=== PATIENT | female | born 1950 | race Caucasian/White ===

== ENCOUNTER 2016-12-11 13:51 | Emergency (ER) | payer OTHER ==
[~2016-12-11] VITALS: Ht 161.3 cm; Wt 73.5 kg
--- NOTE | ~2016-12-11 | CT2 ---
[facility] A Service of [facility] & [facility] RADIOLOGY TEXT RESULTS PATIENT: NAYELI LOMELI LOCATION: [facility] : 52 UNIT #: [id number] AGE: [address]: Tommy Nino MD SEX: F ORDER DR: [id number] [facility] [address] [place], [place] [address] [id number] MR#: [id number] Acc #: [id number] NAME: NAYELI LOMELI. : 1950 SEX: F STUDY DATE/TIME: 12/11/2016 16:09 UNIT: [facility] ROOM: STUDY DESCRIPTION: CT Abd and Pelv W Cont Attending Physician: Tommy Nino M.D. Ordering Physician: Tommy Nino M.D. Primary Care Physician: Mayda Johnson A.P.R.N. MEDICAL IMAGING REPORT This report is preliminary unless electronic signature is present EXAM Abdomen and pelvis CT with contrast, 12/11/2016. INDICATION 66-year-old female with left lower quadrant pain, constipation for a week, nausea and vomiting for a day. TECHNIQUE Contrast-enhanced abdomen and pelvis CT performed. This CT exam was performed with one or more of the following radiation dose reduction techniques: automatic exposure control, adjustment of mA and/or kV according to patient size, and iterative reconstruction. COMPARISON We have no comparison studies. FINDINGS CT ABDOMEN: Lung bases demonstrate emphysema. No effusion. Aorta demonstrates atherosclerotic change. Spleen unremarkable. There is a dominant nodule in the left adrenal gland measuring 2.7 cm and there is a smaller nodule in the right adrenal gland measuring 12 mm. These are indeterminate. This could be better assessed with MRI in the absence of prior studies documenting 2 years of stability. The pancreas is unremarkable. The gallbladder is unremarkable. There is fatty infiltration of the liver. There is a tiny left hepatic lobe cyst. Kidneys demonstrate a right renal cyst. CT PELVIS: Bladder unremarkable. No drainable fluid collection in the pelvis. There is diverticulosis and [id number] acute diverticulitis of the sigmoid colon. No abscess, free air, or bowel obstruction at this time. Appendix normal. Inguinal canals unremarkable. No suspicious bone lesion. [facility] A Service of [facility] & [facility] RADIOLOGY TEXT RESULTS PATIENT: NAYELI LOMELI LOCATION: [facility] : 52 UNIT #: [id number] AGE: [address]: Tommy Nino MD SEX: F ORDER DR: IMPRESSION 1. [id number] acute diverticulitis of the sigmoid colon. No abscess, free air, or bowel obstruction. 2. Indeterminate adrenal masses. See discussion above regarding further evaluation with MRI, absent prior studies demonstrating 2 years of stability. 3. Fatty infiltration of the liver and a tiny hepatic cyst. 4. Appendix normal. Dictated by... Jose M Harding M.D. THIS IS AN ELECTRONICALLY VERIFIED REPORT Jose M Harding M.D. at 12/11/2016 11:16 PM FRANK/marilyn TD: 12/11/2016 18:55 JOB #: [id number] MEDICAL IMAGING REPORT Page 1 of 1 COPY
[~2016-12-11 13:51] MED LIST: ACETAMINOPHEN650 M1 PO; ALTACE PO; ALTACE5 M1 PO; ASPIRIN PO; ASPIRIN81 M1 PO; ASPIRIN81 M2 PO; AUGMENTIN PO; CLINDAMYCIN HC300 MG PO; COUMADIN; COUMADIN PO; COUMADIN10 MG PO; COUMADIN7.5 MG PO; CYMBALTA PO; FLONASE16 GM; HCTZ PO; HYDROCHLOROTHIA25 MG PO; LOVENOX SUBQ; MEDI-MECLIZINE25 M1 PO; MEDROL PO; NEXIUM PO; TOPROL XL PO; TOPROL XL50 MG PO; VYTORIN 10/40 T1 TAB PO; ZITHROMAX PO
[2016-12-11 14:50] LABS: BASOPHIL% 0.4 % (0-2.5); EOSINOPHIL# 0.3 X10e3 (0-0.7); EOSINOPHIL% 3.4 % (0.0-7.0); HEMATOCRIT 41.5 % (35.0-45.0); LYMPHOCYTE# 0.9 X10e3 (1.0-3.5); LYMPHOCYTE% 9.3 % (17.0-45.0); MEAN CELL VOLUME 90.1 FL (83-96); MEAN CORPUSCULAR HEMOGLOBIN 30.3 PG (28-34); MEAN CORPUSCULAR HGB CONC 33.6 g/dL (30-36); MEAN PLATELET VOLUME 9.8 FL (6.5-11.5); MONOCYTE# 0.9 X10e3 (0-1.0); MONOCYTE% 8.9 % (3.0-12.0); NEUTROPHIL# 7.8 X10e3 (1.5-7.1); PLATELET COUNT 209 X10e3 (140-420); RED BLOOD COUNT 4.61 X10e (3.90-5.30); RED CELL DISTRIBUTION WIDTH 16.2 % (11.0-15.5); WHITE BLOOD COUNT 9.9 X10e3 (4.0-10.5)
[2016-12-11 14:54] LABS: DIFF IND NO
[2016-12-11 15:06] LABS: URINE SOURCE CLEAN CATCH
[2016-12-11 15:10] LABS: URINE APPEARANCE CLEAR; URINE BILIRUBIN NEG (NEG); URINE BLOOD 1+ (NEG); URINE COLOR YELLOW; URINE GLUCOSE >1000 MG/DL (NEG); URINE KETONE NEG (NEG); URINE LEUKOCYTE ESTERASE NEG (NEG); URINE NITRATE NEG (NEG); URINE PH 6.5 (5-8); URINE PROTEIN 2+ (NEG); URINE SPECIFIC GRAVITY 1.023 (1.003-1.035); URINE UROBILINOGEN 0.2 MG/DL (NEG)
[2016-12-11 15:12] LABS: CULTURE INDICATED? YES; URINE BACTERIA AUWI 1+ (NEGATIVE); URINE SQUAMOUS EPITHELIAL CELL OCC /[HPF]
[2016-12-11 15:13] LABS: ALBUMIN SERUM 3.8 g/dL (3.5-5.0); BILIRUBIN, DIRECT 0.1 mg/dL (0.0-0.2); BILIRUBIN,INDIRECT 0.5 mg/dL (0.0-0.9); BILIRUBIN,TOTAL 0.6 mg/dL (0.2-2.0); BUN/CREATININE RATIO 10.9; CALCIUM SERUM 8.8 mg/dL (8.4-10.2); CREATININE SERUM 1.1 mg/dL (0.6-1.4); GLOM FILT RATE Estimated 52.7 mL/min (>60); POTASSIUM 3.6 mmol/L (3.5-5.1); PROTEIN TOTAL SERUM 6.9 g/dL (6.0-8.3)
[2016-12-11 15:17] LABS: INR 2.6; PROTHROMBIN TIME (PATIENT) 28.1 SECONDS (10.0-11.7)
== END 2016-12-11 16:57 | disposition home or self-care (01) ==
LOC: CED 13:51
PROVIDERS: Emergency Medicine
DX: K57.92 Diverticulitis of intestine, part unspecified, without perforation or abscess without bleeding (principal); K21.9 Gastro-esophageal reflux disease without esophagitis; I10 Essential (primary) hypertension; E78.5 Hyperlipidemia, unspecified; J44.9 Chronic obstructive pulmonary disease, unspecified; F17.200 Nicotine dependence, unspecified, uncomplicated; Z79.01 Long term (current) use of anticoagulants
CPT/HCPCS: 36415; 74177; 80048; 80076; 81003; 82150; 83690; 85025; 85610; 85730; 87086; 96361; 96374; 96375; 99284; J2270; J2405; Q9967